=== PATIENT | male | born 1955 | race Caucasian/White ===

== ENCOUNTER → 2016-12-29 | Outpatient (CLI) | payer BC | LOC: MHCPAIN 09:10 | DX: G89.29 Other chronic pain (principal); M50.122 Cervical disc disorder at C5-C6 level with radiculopathy; M48.02 Spinal stenosis, cervical region | CPT/HCPCS: G0463 ==

== ENCOUNTER → 2017-01-25 | Outpatient (CLI) | payer BC | LOC: MHCPAIN 08:49 | DX: M50.322 Other cervical disc degeneration at C5-C6 level (principal); M50.323 Other cervical disc degeneration at C6-C7 level ==

== ENCOUNTER → 2017-02-02 | Outpatient (CLI) | payer BC | LOC: MHCPAIN 09:51 | DX: G89.29 Other chronic pain (principal); M50.30 Other cervical disc degeneration, unspecified cervical region; M54.12 Radiculopathy, cervical region; M48.02 Spinal stenosis, cervical region | CPT/HCPCS: G0463 ==

== ENCOUNTER → 2017-06-05 | Outpatient (CLI) | payer BC | LOC: MHCPAIN 10:04 | DX: G89.29 Other chronic pain (principal); M50.90 Cervical disc disorder, unspecified, unspecified cervical region; M54.12 Radiculopathy, cervical region; M54.81 Occipital neuralgia; R51 Headache; Z87.891 Personal history of nicotine dependence | CPT/HCPCS: G0463 ==

== ENCOUNTER 2019-09-07 05:24 | Emergency (ER) | payer BC ==
[~2019-09-07] VITALS: Ht 190.5 cm; Wt 122.7 kg
[2019-09-07 05:32] VITALS: TEMP 97.3
[2019-09-07] MEDS ORDERED: LOTENSIN HCT 201 TAB PO (05:56)
[2019-09-07] MEDS ORDERED: BUPRENORPHINE HC8 MG SL (05:57)
[2019-09-07] MEDS ORDERED: ATIVAN 0.50.5 MG/TAB PO (07:50)
[2019-09-07 08:16] VITALS: BP 131/88; PULSE 85
== END 2019-09-07 08:20 | disposition home or self-care (01) ==
LOC: COL.ER 05:24
DX: F11.23 Opioid dependence with withdrawal (principal); T40.2X5A Adverse effect of other opioids, initial encounter; F41.9 Anxiety disorder, unspecified; I10 Essential (primary) hypertension

== ENCOUNTER → 2020-06-15 | Outpatient (CLI) | payer BC ==
[~2020-06-15] MED LIST: ATIVAN 0.50.5 MG/TAB PO; BUPRENORPHINE HC8 MG SL; LOTENSIN HCT 201 TAB PO
== END ==
LOC: ZCOL.LAB 16:20
DX: Z20.828 Contact with and (suspected) exposure to other viral communicable diseases (principal)